=== PATIENT | male | born 1980 | race Hispanic/Latino ===

== ENCOUNTER 2017-03-07 05:38 | Day surgery (SDC) | payer BC ==
[2017-03-06 09:18] VITALS: BMI 38.7
[2017-03-07] MEDS ORDERED: Diprivan 40 ML ONE (07:03)
[2017-03-07] MEDS ORDERED: Propofol 200 MG/20 ML VIAL ONE (08:04)
--- NOTE | 2017-03-07 09:35 | ECHO ---
TRANSESOPHAGEAL ECHOCARDIOGRAM: DATE OF SERVICE: 03/07/17 PREPROCEDURE DIAGNOIS: Dilated aortic root. POSTPROCEDURE DIAGNOSIS: Normal root size. No evidence of ascending aortic aneurysm. DETAILS: A transesophageal echo was done to evaluate the aortic root. The anesthesiology department provided sedation for the patient. Please see their notes for details. After adequate sedation was achieved, the transesophageal prove was inserted into the patient's mouth and into the esophagus successfully without any problems. Multiplanar views were then obtained. FINDINGS: Left ventricle appears to be normal size with normal wall thickness. Systolic function is normal. Ej ection fraction estimated at 55-60%. No regional wall motion abnormalities. Left atrium with no evidence of mass or thrombus. Left atrial appendage is patent with no mass or th rombus. Right ventricle is normal size, normal function. Right atrium has no evidence of mass or thrombus. Intraatrial septum is intact by color Doppler and by agitated saline study. Aortic valve has three cusps, no stenosis or regurgitation. Aortic root is normal size, measuring 3. 4 cm. Ascending aorta is normal size. No evidence of aneurysmal dilatations or defects. Mitral valve is structurally normal. There is mild MR. No stenosis. Tricuspid valve is structurally normal. There is mild to moderate TR. No stenosis. Pulmonary valve is structurally normal. No stenosis or regurgitation. Descending thoracic aorta is normal size with no evidence of atherosclerotic disease. CONCLUSIONS: 1. Normal systolic function. Ejection fraction of 55-60%. 2. Intact intraatrial septum by agitated saline study and color Doppler. 3. Mild MR. 4. Tricuspid aortic valve with no evidence of aortic root dilatation, or ascending or thoracic desc ending aortic aneurysm.
== END 2017-03-07 08:50 | disposition home or self-care (01) ==
LOC: CCL 05:38
PROVIDERS: ATTEND Internal Medicine Cardiovascular Disease
DX: I77.810 Thoracic aortic ectasia (principal); E78.00 Pure hypercholesterolemia, unspecified; I10 Essential (primary) hypertension; E66.9 Obesity, unspecified; Z68.38 Body mass index [BMI] 38.0-38.9, adult; Z79.899 Other long term (current) drug therapy; Z90.49 Acquired absence of other specified parts of digestive tract
CPT/HCPCS: 93312; J2704